=== PATIENT | male | born 1940 | race Caucasian/White ===

== ENCOUNTER 2016-09-13 15:55 | Emergency (ER) | payer OTHER ==
[~2016-09-13] VITALS: Ht 180.3 cm; Wt 51.6 kg
[~2016-09-13 15:55] MED LIST: ALFU10TA2 PO; ASPI325T PO; ATOR40TA PO; CARV6.25 PO; CLOP75TA PO; ENAL5TAB PO; FERR324T4 PO; GABA300C3 PO; LORTA5 PO; NITR0.4S SL; PANT20 PO; PRED5TAB PO; RANO500 PO; ROFL1TAB2 OR; SERT-132 OR; SYMB160A INH; TRAZ100 PO
[2016-09-13 15:59] VITALS: BP 105/55; PULSE 83; RESP 16; TEMP 98.4; O2SAT 96
== END 2016-09-13 18:01 | disposition left against medical advice (07) ==
LOC: PHED 15:55
DX: S81.812A Laceration without foreign body, left lower leg, initial encounter (principal); Z53.21 Procedure and treatment not carried out due to patient leaving prior to being seen by health care provider; W19.XXXA Unspecified fall, initial encounter
CPT/HCPCS: 99281

== ENCOUNTER 2017-01-25 12:40 | Inpatient (IN) | payer OTHER, MEDICARE ==
[~2017-01-25] VITALS: Ht 154.9 cm; Wt 70.0 kg
[2017-01-25] VITALS (17 sets, daily range): BP systolic 76–125; BP diastolic 45–63; PULSE 79–125; RESP 18–30; TEMP 97.6–98; O2SAT 94–98
[2017-01-25] MEDS ORDERED: SODIUM CHLORIDE 0.9% FLUSH 10 ML FLUSH IVF PRN (13:00)
--- NOTE | 2017-01-25 13:00 | PD ---
HPI Chief Complaint: Chest Pain Time Seen by Provider: 12:52 Travel History International Travel<30 days: No Contact w/Intl Traveler<30days: No Traveled to known affect area: No History of Present Illness HPI 76 YO M with PMH of HTN, CAD s/p stenting, COPD presents to the ED for evaluation of ~45 minute history of sudden onset, 8/10, cramping left sided lower chest/ abdominal pain. Onset at rest. Radiating to the back. Patient denies palpitations, N/V, worsening SOB. Patient states that he finished a course of antibiotics yesterday for bronchitis. He denies fevers, chills, lower extremity edema. He took a dose of nitroglycerin before arrival with no improvement of the pain. He denies alcohol use. He uses O2 at night. He is followed by Dr. Yin and Dr. Olson. [facility] Past Medical History Hx Anticoagulant Therapy: Yes (PLAVIX) Asthma: Yes Blood Disorders: No Anxiety: Yes Depression: Yes Heart Rhythm Problems: No Cancer: No Cardiac Catheterization: Yes Cardiovascular Problems: Yes (3 STENTS) High Cholesterol: Yes Chest Pain: Yes Congestive Heart Failure: No COPD: Yes Cerebrovascular Accident: Yes (x3) Coronary Artery Disease: Yes Diabetes: No Diminished Hearing: Yes (DIMINISHED HEARING LOW) Endocrine: No Gastrointestinal Disorders: Yes GERD: Yes Genitourinary: No Hepatitis: No Hiatal Hernia: No Hypertension: Yes Immune Disorder: No Musculoskeletal: No Neurologic: Yes (STROKE) Psychiatric: Yes Reproductive: No Respiratory: Yes (COPD) Immunizations Current: Yes Myocardial Infarction: Yes Thyroid Disease: No Ulcer: Yes Past Surgical History Abdominal Surgery: Yes (ulcers, APPY) AICD: No Appendectomy: Yes Body Medical Devices: STENTS X3 Cardiac Surgery: Yes (cardiac cath, BALLOON PLACEMENT, STENTS ) Coronary Stent: Yes Ear Surgery: No Endocrine Surgery: No Eye Surgery: No Genitourinary Surgery: No Gynecologic Surgery: No Joint Replacement: No Oral Surgery: No Pacemaker: No Thoracic Surgery: No Tonsillectomy: Yes Other Surgery: Yes (appendix) Social History Alcohol Use: No Tobacco Use: No (quit 2008) Substance Use: No Allergies-Medications (Allergen,Severity, Reaction): Coded Allergies: No Known Allergies (Verified , 09/13/16) Reported Meds & Prescriptions Reported Meds & Active Scripts Active Review of Systems Except as stated in HPI: all other systems reviewed are Neg Physical Exam Narrative GENERAL: Well-nourished, well-developed, pale male. Pursed lip breathing. Tachypneic. SKIN: Focused skin assessment warm/dry. HEAD: Normocephalic. EYES: No scleral icterus. No injection or drainage. NECK: Supple, trachea midline. No JVD or lymphadenopathy. CARDIOVASCULAR: Regular rate and rhythm without murmurs, gallops, or rubs. 2+ DP pulses bilaterally. RESPIRATORY: Breath sounds clear. Diminished on the lower left. + accessory muscle use. GASTROINTESTINAL: Abdomen soft, non-tender, nondistended. Active bowel sounds. MUSCULOSKELETAL: No cyanosis, or edema. Patient is noted to walk with a normal gait. BACK: Nontender without obvious deformity. No CVA tenderness. Data Data Last Documented VS Vital Signs Date Time Temp Pulse Resp B/P (MAP) Pulse Ox O2 Delivery O2 Flow Rate FiO2 01/25/17 14:49 80 89/52 (64) 01/25/17 13:22 96 Nasal Cannula 2.00 01/25/17 13:17 27 01/25/17 12:45 97.6 Orders Orders Electrocardiogram (01/25/17 12:49) Basic Metabolic Panel (Bmp) (01/25/17 12:49) Ckmb (Isoenzyme) Profile (01/25/17 12:49) Complete Blood Count With Diff (01/25/17 12:49) Magnesium (Mg) (01/25/17 12:49) Prothrombin Time / Inr (Pt) (01/25/17 12:49) Act Partial Throm Time (Ptt) (01/25/17 12:49) Troponin I (01/25/17 12:49) Chest, Single Ap (01/25/17 12:49) Ecg Monitoring (01/25/17 12:49) Bilateral Bp Monitoring (01/25/17 12:49) Iv Access Insert/Monitor (01/25/17 12:49) Oximetry (01/25/17 12:49) Oxygen Administration (01/25/17 12:49) Sodium Chloride 0.9% Flush (Ns Flush) (01/25/17 13:00) Lipase (01/25/17 13:02) Morphine Inj (Morphine Inj) (01/25/17 13:15) Sodium Chlor 0.9% 1000 Ml Inj (Ns 1000 M (01/25/17 13:30) Cta Thor Abd Aorta W Iv C W3d (01/25/17 13:22) Sodium Chlor 0.9% 1000 Ml Inj (Ns 1000 M (01/25/17 13:45) CKMB (01/25/17 13:00) CKMB% (01/25/17 13:00) Acetaminophen (Tylenol) (01/25/17 13:45) Ct Brain W/O Iv Contrast(Rout) (01/25/17 ) Type And Screen (01/25/17 13:38) Heparin Inj (Heparin Inj) (01/25/17 14:00) Heparin Inj (Heparin Inj) (01/25/17 20:00) Heparin Inj (Heparin Inj) (01/25/17 20:00) Heparin-D5w 25,000 U/250 Ml (Heparin-D5w (01/25/17 14:00) Act Partial Throm Time (Ptt) (01/25/17 13:51) Cbc No Diff, Includes Plts (01/25/17 13:51) Cbc No Diff, Includes Plts (01/28/17 06:00) Act Partial Throm Time (Ptt) (01/25/17 20:51) Occult Blood (Hemoccult) Stool (01/25/17 13:51) Iohexol 350 Inj (Omnipaque 350 Inj) (01/25/17 13:51) Consult Cardiology (01/25/17 ) Electrocardiogram (01/25/17 13:39) Admit Order (Ed Use Only) (01/25/17 15:14) Labs Laboratory Tests Test 01/25/17 13:00 01/25/17 13:55 White Blood Count 11.9 TH/MM3 11.9 TH/MM3 Red Blood Count 4.57 MIL/MM3 4.59 MIL/MM3 Hemoglobin 14.0 GM/DL 14.0 GM/DL Hematocrit 42.3 % 42.7 % Mean Corpuscular Volume 92.5 FL 92.9 FL Mean Corpuscular Hemoglobin 30.6 PG 30.4 PG Mean Corpuscular Hemoglobin Concent 33.1 % 32.7 % Red Cell Distribution Width 14.4 % 14.6 % Platelet Count 156 TH/MM3 161 TH/MM3 Mean Platelet Volume 7.3 FL 7.9 FL Neutrophils (%) (Auto) 87.8 % Lymphocytes (%) (Auto) 6.0 % Monocytes (%) (Auto) 5.7 % Eosinophils (%) (Auto) 0.2 % Basophils (%) (Auto) 0.3 % Neutrophils # (Auto) 10.4 TH/MM3 Lymphocytes # (Auto) 0.7 TH/MM3 Monocytes # (Auto) 0.7 TH/MM3 Eosinophils # (Auto) 0.0 TH/MM3 Basophils # (Auto) 0.0 TH/MM3 CBC Comment DIFF FINAL Differential Comment Prothrombin Time 10.1 SEC Prothromb Time International Ratio 0.9 RATIO Activated Partial Thromboplast Time 23.3 SEC 23.5 SEC Blood Urea Nitrogen 19 MG/DL Creatinine 1.43 MG/DL Random Glucose 112 MG/DL Calcium Level 10.3 MG/DL Magnesium Level 2.1 MG/DL Sodium Level 139 MEQ/L Potassium Level 5.1 MEQ/L Chloride Level 104 MEQ/L Carbon Dioxide Level 28.1 MEQ/L Anion Gap 7 MEQ/L Estimat Glomerular Filtration Rate 48 ML/MIN Total Creatine Kinase 108 U/L Creatine Kinase MB 4.5 NG/ML Troponin I 0.03 NG/ML Lipase 452 U/L MDM Medical Decision Making Medical Screen Exam Complete: Yes Emergency Medical Condition: Yes Differential Diagnosis COPD exacerbation versus PNA versus ACS versus ruptured AAA versus pancreatitis versus other Narrative Course 76 YO M with PMH of HTN, CAD s/p stenting, COPD presents to the ED for evaluation of ~45 minute history of sudden onset, 8/10, cramping left sided lower chest/ abdominal pain. Onset at rest. Radiating to the back. Patient denies palpitations, N/V, worsening SOB. Patient states that he finished a course of antibiotics yesterday for bronchitis. He denies fevers, chills, lower extremity edema. He took a dose of nitroglycerin before arrival with no improvement of the pain. He denies alcohol use. He uses O2 at night. Vitals reviewed, tachycardic with BP within normal limits on arrival. Hypotensive 89/ 54 in the exam room shortly after arrival. On exam the patient has pale appearing. Chest CTAB. Diminished lung signs of a left lower lobe. Abdomen soft, nontender. No focal neuro deficits. IV was established. Patient was administered 4 mg of morphine and 2 L of normal saline. EKG #[address] depressions. Resolved on second EKG approximately one half hour later. Cardiac enzymes: CK-MB 4.5. Troponin 0.03. Chest x-ray: No acute cardiopulmonary process per radiology read. CBC: WBC 11.9 with left shift. Coags: INR 0.9. CMP: BUN 19, creatinine 1.43. Calcium 10.3. Lipase 452 CT head: No acute intracranial abnormality. CTA thoracicoabdominal aortic: Atherosclerosis without dissection or aneurysm per radiology read. Dr. Walls spoke with Dr. Yin who recommended heparin initiation. Bolus and drip ordered. Cardiology consult placed. I spoke with Dr. Villasenorink agrees to accept the patient to the medicine service in the [facility]. Please see medicine notes for disposition [facility] Point of Care Internal Pos. & Neg. Controls: Passed Fecal Specimen Occult Blood: Negative Zoey Concepcion Jan 25, 2017 13:00
[2017-01-25] MEDS ORDERED: MORPHINE SULFATE 4 MG/ML INJ IV PUSH ONE (13:15)
[2017-01-25 13:18] LABS: AUTOMATED NEUTROPHIL # 10.4 TH/MM3 (1.8-7.7); BASOPHIL % 0.3 % (0.0-2.0); EOSINOPHIL % 0.2 % (0.0-4.0); HEMATOCRIT 42.3 % (39.0-51.0); HEMO FLAGS DIFF FINAL; LYMPHOCYTE # 0.7 TH/MM3 (1.0-4.8); MEAN CELL VOLUME 92.5 FL (80.0-100.0); MEAN CORPUSCULAR HEMOGLOBIN 30.6 PG (27.0-34.0); MEAN CORPUSCULAR HGB CONC 33.1 % (32.0-36.0); MONO % 5.7 % (0.0-8.0); NEUT % 87.8 % (16.0-70.0); PLATELET COUNT 156 TH/MM3 (150-450); RED BLOOD COUNT 4.57 MIL/MM3 (4.50-5.90); RED CELL DISTRIBUTION WIDTH 14.4 % (11.6-17.2); WHITE BLOOD COUNT 11.9 TH/MM3 (4.0-11.0)
[2017-01-25 13:25] LABS: APTT (PATIENT) 23.3 SEC (24.3-30.1); INTERNATIONAL NORMALIZED RATIO 0.9 RATIO; PROTHROMBIN TIME - PATIENT 10.1 SEC (9.8-11.6)
[2017-01-25] MEDS ORDERED: SODIUM CHLOR 0.9% 1000 ML INJ 1,000 ML IV ONE ×2 (13:30→13:45)
[2017-01-25 13:34] LABS: ANION GAP 7 MEQ/L (5-15); BICARBONATE 28.1 MEQ/L (21.0-32.0); BLOOD UREA NITROGEN 19 MG/DL (7-18); CHLORIDE 104 MEQ/L (98-107); GLOMERULAR FILTRATION RATE 48 ML/MIN (>89); MAGNESIUM 2.1 MG/DL (1.5-2.5); POTASSIUM 5.1 MEQ/L (3.5-5.1); SODIUM (NA) 139 MEQ/L (136-145)
[2017-01-25 13:38] LABS: CREATINE KINASE 108 U/L (39-308)
[2017-01-25] MEDS ORDERED: ACETAMINOPHEN 500 MG CPLT PO ONE (13:45)
[2017-01-25 13:50] LABS: CKMB 4.5 NG/ML (0.5-3.6)
[2017-01-25] MEDS ORDERED: IOHEXOL 350 MG/ML 10 ML VIAL (for RAD DIAG) IV PUSH ONE (13:51)
--- NOTE | 2017-01-25 13:52 | RADRPT ---
EXAM DATE/TIME: 01/25/2017 13:22 [facility] COMPARISON: CHEST SINGLE AP, March 01, 2014, 15:47. INDICATIONS : Bilateral chest pain for 1 day. MEDICAL HISTORY : Chronic obstructive pulmonary disease. SURGICAL HISTORY : Stent. ENCOUNTER: Initial ACUITY: 1 day PAIN SCORE: 5/10 LOCATION: Bilateral chest FINDINGS: Portable AP view of the chest demonstrates a normal-sized cardiac silhouette. No effusion, consolidat ion, or pneumothorax is visualized. The bones and soft tissues demonstrate no acute abnormality. Ther e is calcification of the aorta. Stable calcified granulomas are present in the left lung. CONCLUSION: Stable chest x-ray. No acute cardiopulmonary abnormality is identified. Hira Osorio MD on January 25, 2017 at 13:50 Board Certified Radiologist. This report was verified electronically.
[2017-01-25] MEDS ORDERED: HEPARIN-D5W 25,000 U/250 ML 250 ML IV PRN (14:00)
[2017-01-25] MEDS ORDERED: HEPARIN SODIUM - IV 10,000 UNITS/10 ML VIAL IV ONE (14:00)
--- NOTE | 2017-01-25 14:04 | RADRPT ---
EXAM DATE/TIME: 01/25/2017 13:52 [facility] COMPARISON: CT BRAIN W/O CONTRAST, May 26, 2015, 1:27. INDICATIONS : Headaches for one day. RADIATION DOSE: 43.42 CTDIvol (mGy) MEDICAL HISTORY : Cardiovascular disease. Hypertension. CVA SURGICAL HISTORY : Appendectomy. ENCOUNTER: Initial ACUITY: 1 day PAIN SCALE: 4/10 LOCATION: Bilateral cranial TECHNIQUE: Multiple contiguous axial images were obtained of the head. Using automated exposure control and adj ustment of the mA and/or kV according to patient size, radiation dose was kept as low as reasonably a chievable to obtain optimal diagnostic quality images. DICOM format image data is available electro nically for review and comparison. FINDINGS: CEREBRUM: There is mild cerebral atrophy. Ventricles are normal in size. There is mild periventricular white ma tter low attenuation. No evidence of midline shift, mass lesion, hemorrhage or acute infarction. No extra-axial fluid collections are seen. POSTERIOR FOSSA: The cerebellum and brainstem demonstrate no acute finding. The 4th ventricle is midline. The cerebe llopontine angle is unremarkable. EXTRACRANIAL: The visualized portion of the orbits is intact. SKULL: The calvaria is intact. No evidence of skull fracture. CONCLUSION: Stable noncontrast head CT. No acute intracranial abnormality is identified. Hira Osorio MD on January 25, 2017 at 13:59 Board Certified Radiologist. This report was verified electronically.
[2017-01-25 14:18] LABS: HEMATOCRIT 42.7 % (39.0-51.0); MEAN CELL VOLUME 92.9 FL (80.0-100.0); MEAN CORPUSCULAR HEMOGLOBIN 30.4 PG (27.0-34.0); MEAN CORPUSCULAR HGB CONC 32.7 % (32.0-36.0); PLATELET COUNT 161 TH/MM3 (150-450); RED BLOOD COUNT 4.59 MIL/MM3 (4.50-5.90); RED CELL DISTRIBUTION WIDTH 14.6 % (11.6-17.2); REVIEW FLAG FINAL; WHITE BLOOD COUNT 11.9 TH/MM3 (4.0-11.0)
--- NOTE | 2017-01-25 14:28 | PD ---
Physical Exam Date Seen by Provider: Jan 25, 2017 Time Seen by Provider: 14:24 Narrative 76-year-old male came to the emergency room with history of sharp chest pain that ran all the way across his chest starting from the left side while he was in the car waiting for his to come out of a store. This was 45 minutes prior to the arrival. Patient was seen by my PA and I'm supervising her. I was called in the room urgently because his blood pressure was running in the 70s. Apparently patient initially came in with normal vital signs and that her blood pressure started to drop. He is currently on fluid with pressure back. I looked at the first EKG which showed ST depressions in the septal leads especially with sinus tachycardia. I ordered a repeat EKG which shows normalizing of the septal depressions. Blood test results were back which showed: Within normal range. Currently awaiting for CT scan of his thoracic aorta to rule out dissection and a head CT since patient was complaining of headache. He will need to be admitted and in my opinion should be in [facility] at least. He will be started on heparin bolus and drip because of the dynamic EKG changes. I discussed with his literacy consultant Dr. Ruiz who recognizes the patient very well. As per him patient is a heavy smoker and a very bad history of COPD. Data Data Last Documented VS Orders Orders Electrocardiogram (01/25/17 12:49) Basic Metabolic Panel (Bmp) (01/25/17 12:49) Ckmb (Isoenzyme) Profile (01/25/17 12:49) Complete Blood Count With Diff (01/25/17 12:49) Magnesium (Mg) (01/25/17 12:49) Prothrombin Time / Inr (Pt) (01/25/17 12:49) Act Partial Throm Time (Ptt) (01/25/17 12:49) Troponin I (01/25/17 12:49) Chest, Single Ap (01/25/17 12:49) Ecg Monitoring (01/25/17 12:49) Bilateral Bp Monitoring (01/25/17 12:49) Iv Access Insert/Monitor (01/25/17 12:49) Oximetry (01/25/17 12:49) Oxygen Administration (01/25/17 12:49) Sodium Chloride 0.9% Flush (Ns Flush) (01/25/17 13:00) Lipase (01/25/17 13:02) Morphine Inj (Morphine Inj) (01/25/17 13:15) Sodium Chlor 0.9% 1000 Ml Inj (Ns 1000 M (01/25/17 13:30) Cta Thor Abd Aorta W Iv C W3d (01/25/17 13:22) Sodium Chlor 0.9% 1000 Ml Inj (Ns 1000 M (01/25/17 13:45) CKMB (01/25/17 13:00) CKMB% (01/25/17 13:00) Acetaminophen (Tylenol) (01/25/17 13:45) Ct Brain W/O Iv Contrast(Rout) (01/25/17 ) Type And Screen (01/25/17 13:38) Heparin Inj (Heparin Inj) (01/25/17 14:00) Heparin Inj (Heparin Inj) (01/25/17 20:00) Heparin Inj (Heparin Inj) (01/25/17 20:00) Heparin-D5w 25,000 U/250 Ml (Heparin-D5w (01/25/17 14:00) Act Partial Throm Time (Ptt) (01/25/17 13:51) Cbc No Diff, Includes Plts (01/25/17 13:51) Iohexol 350 Inj (Omnipaque 350 Inj) (01/25/17 13:51) Consult Cardiology (01/25/17 ) Electrocardiogram (01/25/17 13:39) Admit Order (Ed Use Only) (01/25/17 15:14) Labs Laboratory Tests Test 01/25/17 13:00 01/25/17 13:55 White Blood Count 11.9 TH/MM3 11.9 TH/MM3 Red Blood Count 4.57 MIL/MM3 4.59 MIL/MM3 Hemoglobin 14.0 GM/DL 14.0 GM/DL Hematocrit 42.3 % 42.7 % Mean Corpuscular Volume 92.5 FL 92.9 FL Mean Corpuscular Hemoglobin 30.6 PG 30.4 PG Mean Corpuscular Hemoglobin Concent 33.1 % 32.7 % Red Cell Distribution Width 14.4 % 14.6 % Platelet Count 156 TH/MM3 161 TH/MM3 Mean Platelet Volume 7.3 FL 7.9 FL Neutrophils (%) (Auto) 87.8 % Lymphocytes (%) (Auto) 6.0 % Monocytes (%) (Auto) 5.7 % Eosinophils (%) (Auto) 0.2 % Basophils (%) (Auto) 0.3 % Neutrophils # (Auto) 10.4 TH/MM3 Lymphocytes # (Auto) 0.7 TH/MM3 Monocytes # (Auto) 0.7 TH/MM3 Eosinophils # (Auto) 0.0 TH/MM3 Basophils # (Auto) 0.0 TH/MM3 CBC Comment DIFF FINAL Differential Comment Prothrombin Time 10.1 SEC Prothromb Time International Ratio 0.9 RATIO Activated Partial Thromboplast Time 23.3 SEC 23.5 SEC Blood Urea Nitrogen 19 MG/DL Creatinine 1.43 MG/DL Random Glucose 112 MG/DL Calcium Level 10.3 MG/DL Magnesium Level 2.1 MG/DL Sodium Level 139 MEQ/L Potassium Level 5.1 MEQ/L Chloride Level 104 MEQ/L Carbon Dioxide Level 28.1 MEQ/L Anion Gap 7 MEQ/L Estimat Glomerular Filtration Rate 48 ML/MIN Total Creatine Kinase 108 U/L Creatine Kinase MB 4.5 NG/ML Troponin I 0.03 NG/ML Lipase 452 U/L MDM Supervised Visit with JOSE: Yes Critical Care Narrative Aggregate critical care time was 30 minutes. Time to perform other separately billable procedures was not included in the critical care time. My time did not include minutes spent treating any other patients simultaneously or on activities that did not directly contribute to the patient's treatment. The services I provided to this patient were to treat and/or prevent clinically significant deterioration that could result in: Hypotension, ACS, heparin bolus and drip I provided critical care services requiring my management, as noted below: Chart data review, documentation time, medication orders and management, vital sign assessments/reviewing monitor data, ordering and reviewing lab tests, ordering and interpreting/reviewing x-rays and diagnostic studies, care of the patient and discussion of the patient with the admitting physicians. Scripts Aspirin DR (Aspirin EC) 81 Mg Tabdr 81 MG PO DAILY for heart, #30 TAB 0 Refills Prov: Juan Rogers MD 01/27/17 Ranolazine ER 12 HR (Ranexa ER 12 HR) 500 Mg Tab 1000 MG PO BID for Chest Pain, #60 TAB 0 Refills Prov: Juan Rogers MD 01/27/17 Sharath Walls MD Jan 25, 2017 14:28
[2017-01-25 14:31] LABS: APTT (PATIENT) 23.5 SEC (24.3-30.1)
--- NOTE | 2017-01-25 14:45 | MB ---
cc: JAMIE ARAGON MD DATE OF CONSULTATION: 01/25/2017. REASON FOR CONSULTATION: Chest pain. HISTORY OF PRESENT ILLNESS: The patient is a very pleasant 76-year-old gentleman well-known to myself who has a history of complex coronary disease status post multiple cardiac stents as well as severe COPD, though he is no longer smoking (he does get significant secondhand smoke from his ). The patient was in his usual state of reasonable though imperfect health when he began having what he describes as a severe sharp central chest pain. Because of these pains, he took a nitroglycerin and presented to the hospital where his initial workup was notable for a first normal troponin as well as an EKG showing minimal S-T depressions. Currently the patient is not having any further chest pain, though he does have chronic shortness of breath. He denies lightheadedness, dizziness or syncope. PAST MEDICAL HISTORY: 1. Complex coronary disease status post multiple stents. 2. Severe COPD. 3. Pulmonary hypertension. HOME MEDICATIONS: 1. Plavix 75 milligrams daily. 2. Ranexa 500 milligrams twice a day. 3. Atorvastatin 40 milligrams daily. 4. Sublingual nitroglycerin. 5. Coreg 6.25 milligrams twice a day. 6. Enalapril 5 milligrams daily. 7. Aspirin 325 milligrams daily. 8. Neurontin 300 milligrams p.o. three times a day. 9. Sertraline 50 milligrams daily. 10. Trazodone 100 milligrams at bedtime. 11. Prednisone 10 milligrams daily. ALLERGIES: NO KNOWN DRUG ALLERGIES. PHYSICAL EXAMINATION: VITAL SIGNS: Afebrile, pulse 90 down from 125, respiratory rate 20 down from 28, blood pressure 125/58, satting 96% on two liters. GENERAL: A pleasant gentleman with perhaps some mild respiratory distress. NECK: No jugular venous distention. LUNGS: Very decreased breath sounds in all orosco. CARDIOVASCULAR: Distant heart sounds. No significant murmurs appreciated. ABDOMEN: Benign. EXTREMITIES: No edema. LABORATORY DATA: Sodium 139, potassium 5.1, chloride 104, bicarbonate 28.1, BUN 19, creatinine 1.43, glucose 112. Lipase is 452. White count 11.9, hematocrit 42.3, platelet count 156,000. EKGs: EKG shows sinus tachycardia with old inferior infarct with subtle diffuse S-T depressions which perhaps improve slightly when his heart rate is slower on the subsequent EKG, though I would not consider this a dramatic dynamic change. IMPRESSION: 1. Chest pain: The patient's chest pain is fairly atypical and I have more concern for a pulmonary etiology given its sharp nature. His CTA of the chest is pending. I will rule him out for a myocardial infarction and if he rules out, plan for a nuclear stress test. I think a heparin drip is reasonable until he rules out given the S-T depressions seen on the EKG. Further recommendations will be based on his clinical course. Thank you again for the opportunity to participate in this patient's care. MD SANJAY Connolly/GILDARDO /2:15 PM /2:29 PM
--- NOTE | 2017-01-25 15:05 | RADRPT ---
EXAM DATE/TIME: 01/25/2017 13:58 [facility] COMPARISON: CHEST SINGLE AP, January 25, 2017, 13:22. INDICATIONS : Chest pains for one day. IV CONTRAST: 97 cc Omnipaque 350 (iohexol) IV RADIATION DOSE: 16.54 CTDIvol (mGy) MEDICAL HISTORY : Hypertension. Cardiovascular disease CVA SURGICAL HISTORY : Appendectomy. ENCOUNTER: Initial ACUITY: 1 day PAIN SCALE: 4/10 LOCATION: Right chest TECHNIQUE: Volumetric scanning was performed using a multi-row detector CT scanner. The data was post processed with a variety of visualization algorithms including full volume maximum intensity projection, multi -planar sliding thin slab reformation, curved planar reformation, and surface rendering techniques. Using automated exposure control and adjustment of the mA and/or kV according to patient size, radiat ion dose was kept as low as reasonably achievable to obtain optimal diagnostic quality images. DICOM format image data is available electronically for review and comparison. FINDINGS: LUNGS: There is no consolidation or pneumothorax. The lungs are hyperinflated with underlying emphysema and scarring. No concerning pulmonary nodule is visualized. No pleural fluid is present. MEDIASTINUM: No abnormally enlarged lymph nodes by CT criteria. No axillary or hilar abnormalities are identified. Atherosclerotic changes are present in the aorta and there are coronary artery calcifications. ABDOMEN: The liver and spleen are free of focal defects. The gallbladder and pancreas demonstrate no abnormali ty. The adrenal glands are normal. The kidneys demonstrate no evidence of solid renal mass or hydrone phrosis. No free fluid or abdominal masses are identified. No para-aortic adenopathy is seen. The pat ient status post cholecystectomy. A nonobstructing left renal calculus. PELVIS: No evidence of free fluid or pelvic mass. No abnormally enlarged inguinal or retroperitoneal lymph no neda are present. The bladder is unremarkable. THORACIC AORTA: Diffuse atherosclerotic changes are noted with calcification, mild dilatation and plaque.. There is no evidence of aneurysm or dissection. ABDOMINAL AORTA: The aorta is normal in caliber without aneurysm or dissection. The renal arteries are patent bilater ally. The proximal celiac and superior mesenteric arteries are patent and normal in diameter. PELVIC VESSELS: Diffuse atherosclerotic changes noted with calcification and plaque. There is no focal aneurysm. CONCLUSION: 1. Atherosclerotic changes in the aorta with no evidence of dissection or aneurysm. 2. Hyperinflation and underlying emphysema. Cisco Beyer MD on January 25, 2017 at 15:00 Board Certified Radiologist. This report was verified electronically.
[2017-01-25] MEDS ORDERED: ACETAMINOPHEN 500 MG CPLT PO PRN (15:45)
[2017-01-25] MEDS ORDERED: MORPHINE SULFATE 4 MG/ML INJ IV PUSH PRN (15:45)
[2017-01-25] MEDS ORDERED: NITROGLYCERIN 0.4 MG SL 25 TABS/BTL SL PRN (15:45)
[2017-01-25] MEDS ORDERED: RESP: ALBUTEROL 2.5 MG/3 ML NEB (PRN) NEB (15:45)
--- NOTE | 2017-01-25 16:00 | HHI.HP ---
[facility] Service [facility] Primary Care Physician Marina Olson Do, MD Admission Diagnosis ST depression, CP Diagnoses: (1) Atypical chest pain Diagnosis: Principal (2) COPD (chronic obstructive pulmonary disease) Diagnosis: Secondary Chief Complaint: Chest pain Travel History International Travel<30 Days: No Contact w/Intl Traveler <30 Da: No Traveled to Known Affected Are: No Sepsis Criteria SIRS Criteria (2 or more): Heart rate over 90, RR > 20 or PaCO2 < 32 History of Present Illness Written by Eliza Kruger, acting as scribe for Dr. Rogers on 01/25/17 at 15: 50. Mr. Melo is a 76-year-old male patient with a known medical history of COPD requiring home O2 and history of CAD with stent placement who presented to the ED with complaints of chest pain. Patient states he developed sudden chest discomfort in his left sternal chest with radiation to his neck, 8/10 on pain scale, with no noticeable relieving or aggravating factors. Patient states he tried taking a subinguinal Nitro with little relief therefore his brought him to the ED. Currently patient's pain is well-controlled after Morphine IV administration and currently on a Heparin drip. Denies any associated headache, vision changes, diplopia, nausea, vomiting, diaphoresis, dysuria or diarrhea. Does admit to associated dyspnea, although patient does have a history of COPD and requires 4 L NC of O2 at home. States he uses his relief inhaler and nebulizers as needed. Printing Agent is Dr. Choi. Patient's clinical application consultant is Dr. Yin. Review of Systems Constitutional: DENIES: Fatigue, Fever, Chills Endocrine: DENIES: Heat/cold intolerance Eyes: DENIES: Vision loss, Double Vision Respiratory: COMPLAINS OF: Wheezing, Shortness of breath, DENIES: Cough Cardiovascular: COMPLAINS OF: Chest pain, DENIES: Palpitations Gastrointestinal: DENIES: Abdominal pain, Constipation, Diarrhea, Nausea, Vomiting Except as stated in HPI: all other systems reviewed are Neg Past Family Social History Past Medical History COPD requiring 4 LNC home O2. CAD with stent placement 5 years ago. Tobacco abuse history. Past Surgical History Left knee replacement Bilateral cataracts Appendectomy Tonsillectomy Reported Medications Allergies: Coded Allergies: No Known Allergies (Verified , 09/13/16) Active Ordered Medications Current Medications Medications (Trade) Dose Ordered Sig/Carlton Route Start Time Stop Time Status Last Admin (NS Flush) 2 ml UNSCH PRN IVF 01/25/17 13:00 (Heparin Inj) 5,000 units UNSCH PRN IV 01/25/17 20:00 (Heparin Inj) 2,500 units UNSCH PRN IV 01/25/17 20:00 Heparin Sodium/ Dextrose 250 ml @ 8.4 mls/hr TITRATE PRN IV 01/25/17 14:00 01/25/17 14:50 Family History Maternal medical history significant for cancer, unknown type. Father has a history of diabetes. Social History Denies any current tobacco use, states he quit smoking 8 years ago. Denies any alcohol use. Denies any illicit drug use. Physical Exam Vital Signs Vital Signs Date Time Temp Pulse Resp B/P (MAP) Pulse Ox O2 Delivery O2 Flow Rate FiO2 01/25/17 14:49 80 89/52 (64) 01/25/17 14:22 88 88/52 (64) 01/25/17 13:39 96 78/45 (56) 01/25/17 13:31 96 76/51 (59) 01/25/17 13:22 96 Nasal Cannula 2.00 01/25/17 13:20 106 89/54 (66) 01/25/17 13:17 106 27 88/52 (64) 98 Nasal Cannula 01/25/17 13:14 108 28 76/49 (58) 97 Nasal Cannula 01/25/17 12:49 26 98 Nasal Cannula 2.00 01/25/17 12:48 112 30 125/58 (80) 98 Nasal Cannula 2.00 01/25/17 12:45 97.6 124 28 89/55 (66) 96 Room Air 01/25/17 12:45 98.0 125 26 125/58 (80) 98 Physical Exam GENERAL: This is a well-nourished, well-developed male patient, lying in bed on 4LNC with apparent dyspnea. SKIN: No rashes, ecchymoses or lesions. Cool and dry. HEAD: Atraumatic. Normocephalic. Pupils equal round and reactive. Extraocular motions intact. No scleral icterus. No injection or drainage. Nose without bleeding. Throat without erythema, tonsillar hypertrophy or exudate. Uvula midline. Airway patent. NECK: Trachea midline. No JVD. Supple. CARDIOVASCULAR: Sinus tachycardic rhythm, without murmurs, gallops, or rubs. RESPIRATORY: Inspiratory and expiratory wheezing noted throughout lung orosco. Breath sounds equal bilaterally. GASTROINTESTINAL: Abdomen soft, non-tender, round. No guarding. MUSCULOSKELETAL: Extremities without clubbing, cyanosis, or edema. No joint tenderness, effusion, or edema noted. NEUROLOGICAL: Awake and alert. Cranial nerves II through XII intact. Motor and sensory grossly within normal limits. Five out of 5 muscle strength in all muscle groups. Normal speech. Laboratory Laboratory Tests Test 01/25/17 13:00 01/25/17 13:55 White Blood Count 11.9 11.9 Red Blood Count 4.57 4.59 Hemoglobin 14.0 14.0 Hematocrit 42.3 42.7 Mean Corpuscular Volume 92.5 92.9 Mean Corpuscular Hemoglobin 30.6 30.4 Mean Corpuscular Hemoglobin Concent 33.1 32.7 Red Cell Distribution Width 14.4 14.6 Platelet Count 156 161 Mean Platelet Volume 7.3 7.9 Neutrophils (%) (Auto) 87.8 Lymphocytes (%) (Auto) 6.0 Monocytes (%) (Auto) 5.7 Eosinophils (%) (Auto) 0.2 Basophils (%) (Auto) 0.3 Neutrophils # (Auto) 10.4 Lymphocytes # (Auto) 0.7 Monocytes # (Auto) 0.7 Eosinophils # (Auto) 0.0 Basophils # (Auto) 0.0 CBC Comment DIFF FINAL Differential Comment Prothrombin Time 10.1 Prothromb Time International Ratio 0.9 Activated Partial Thromboplast Time 23.3 23.5 Blood Urea Nitrogen 19 Creatinine 1.43 Random Glucose 112 Calcium Level 10.3 Magnesium Level 2.1 Sodium Level 139 Potassium Level 5.1 Chloride Level 104 Carbon Dioxide Level 28.1 Anion Gap 7 Estimat Glomerular Filtration Rate 48 Total Creatine Kinase 108 Creatine Kinase MB 4.5 Troponin I 0.03 Lipase 452 Result Diagram: 01/25/17 1355 01/25/17 1300 Imaging Last Impressions Aorta CTA 01/25/17 1322 Signed Impressions: Service Date/Time: Wednesday, January 25, 2017 13:58 - CONCLUSION: 1. Atherosclerotic changes in the aorta with no evidence of dissection or aneurysm. 2. Hyperinflation and underlying emphysema. Cisco Beyer MD Chest X-Ray 01/25/17 1249 Signed Impressions: Service Date/Time: Wednesday, January 25, 2017 13:22 - CONCLUSION: Stable chest x-ray. No acute cardiopulmonary abnormality is identified. Hira Osorio MD Head CT 01/25/17 0000 Signed Impressions: Service Date/Time: Wednesday, January 25, 2017 13:52 - CONCLUSION: Stable noncontrast head CT. No acute intracranial abnormality is identified. MD Samantha Fountain VTE Risk Assessment Caprini VTE Risk Assessment: Mod/High Risk (score >= 2) Caprini Risk Assessment Model Point Value = 1 Point Value = 2 Point Value = 3 Point Value = 5 Age 41-60 Minor surgery BMI > 25 kg/m2 Swollen legs Varicose veins or History of unexplained or recurrent spontaneous Oral contraceptives or hormone replacement Sepsis (< 1 month) Serious lung disease, including pneumonia (< 1 month) Abnormal pulmonary function Acute myocardial infarction Congestive heart failure (< 1 month) History of inflammatory bowel disease Medical patient at bed rest Age 61-74 Arthroscopic surgery Major open surgery (> 45 min) Laparoscopic surgery (> 45 min) Malignancy Confined to bed (> 72 hours) Immobilizing plaster cast Central venous access Age >= 75 History of VTE Family history of VTE Factor V Leiden Prothrombin [id number] Lupus anticoagulant Anticardiolipin antibodies Elevated serum homocysteine Heparin-induced thrombocytopenia Other congenital or acquired thrombophilia Stroke (< 1 month) Elective arthroplasty Hip, pelvis, or leg fracture Acute spinal cord injury (< 1 month) Prophylaxis Regimen Total Risk Factor Score Risk Level Prophylaxis Regimen 0-1 Low Early ambulation 2 Moderate Order ONE of the following: *Sequential Compression Device (SCD) *Heparin 5000 units SQ BID 3-4 Higher Order ONE of the following medications: *Heparin 5000 units SQ TID *Enoxaparin/Lovenox 40 mg SQ daily (WT < 150 kg, CrCl > 30 mL/min) *Enoxaparin/Lovenox 30 mg SQ daily (WT < 150 kg, CrCl > 10-29 mL/min) *Enoxaparin/Lovenox 30 mg SQ BID (WT < 150 kg, CrCl > 30 mL/min) AND/OR *Sequential Compression Device (SCD) 5 or more Highest Order ONE of the following medications: *Heparin 5000 units SQ TID (Preferred with Epidurals) *Enoxaparin/Lovenox 40 mg SQ daily (WT < 150 kg, CrCl > 30 mL/min) *Enoxaparin/Lovenox 30 mg SQ daily (WT < 150 kg, CrCl > 10-29 mL/min) *Enoxaparin/Lovenox 30 mg SQ BID (WT < 150 kg, CrCl > 30 mL/min) AND *Sequential Compression Device (SCD) Assessment and Plan Assessment and Plan Mr. Melo is a 76-year-old male patient with a known medical history of COPD requiring home O2 and history of CAD with stent placement who presented to the ED with complaints of chest pain. Patient states he developed sudden chest discomfort in his left sternal chest with radiation to his neck, with no noticeable relieving or aggravating factors. Patient states he tried taking a subinguinal Nitro with little relief therefore his brought him to the ED. Atypical chest pain CAD with history of stent placement - Initial troponin flat. EKG with minimal ST depression. No arrhythmias noted. Continue to monitor trends. Continue cardiac telemetry, monitor. Lipid profile pending. - CXR reviewed showing no acute abnormality. Aorta CTA reviewed showing arthrosclerotic changes in the aorta with no evidence of dissection or aneurysm. Hyperinflation or underlying emphysema. - Cardiology consulted, patient known to Dr. Yin who has seen patient , appreciate recommendations to rule out CA with serial troponins and EKGs, if patient has no evidence of CA will perform stress test tomorrow. Follow. - Continue heparin drip per cardiology recommendations. - Sheridan PO PRN per pain scale. Morphine IV PRN per pain scale. - Place on aspirin 325 mg PO daily. - Nitroglycerin SL PRN chest pain. Chronic obstructive pulmonary disease, O2 dependent - Continue supplemental O2 to keep sats >88%. - Duonebs scheduled and PRN as needed. - Aorta CTA ruled out any acute process or PE. CXR showing evidence of emphysema. Follow clinically. GI Prophylaxis: Protonix. DVT Prophylaxis: Heparin. This note was transcribed by keerthi Kruger. I, Dr. Juan D Stoverink personally performed the history, physical exam, and medical decision making; and confirmed the accuracy of the information in the transcribed note. Authenticated by Dr. Juan Rogers on 01/25/17 at 16:40. Physician Certification 2 Midnight Certification Type: Admission for Inpatient Services Order for Inpatient Services The services are ordered in accordance with Medicare regulations or non- Medicare payer requirements, as applicable. In the case of services not specified as inpatient-only, they are appropriately provided as inpatient services in accordance with the 2-midnight benchmark. Estimated LOS (days): 2 2 days is the estimated time the patient will need to remain in the hospital, assuming treatment plan goals are met and no additional complications. Post-Hospital Plan: Not yet determined Eliza Kruger Jan 25, 2017 16:00 Juan Rogers MD Jan 25, 2017 16:40
[2017-01-25] MEDS ORDERED: VENTAER INH (16:20)
[2017-01-25] MEDS ORDERED: PLAV75TA29 PO (16:20)
[2017-01-25] MEDS ORDERED: NITR0.4S SL (16:20)
[2017-01-25] MEDS ORDERED: SYMB160A INH (16:20)
[2017-01-25] MEDS ORDERED: RANO500 PO (16:20)
[2017-01-25] MEDS ORDERED: ENAL5TAB PO (16:20)
[2017-01-25] MEDS ORDERED: CARV6.252 PO (16:20)
[2017-01-25] MEDS ORDERED: TRAZ100T6 PO (16:20)
[2017-01-25] MEDS ORDERED: PRED5TAB PO (16:20)
[2017-01-25] MEDS: RESP: ALBUTEROL 2.5 MG/IPRATROPIUM 0.5 MG NEB (SCH) NEB ×2 (16:45→21:20)
[2017-01-25] MEDS: SODIUM CHLOR 0.9% 1000 ML INJ 1,000 ML IV SCH (17:57)
[2017-01-25] MEDS: PANTOPRAZOLE SOD 40 MG DELAYED RELEASE TAB PO SCH (17:57)
[2017-01-25 19:41] LABS: APTT (PATIENT) 41.8 SEC (24.3-30.1)
[2017-01-25] MEDS ORDERED: HEPARIN SODIUM - IV 10,000 UNITS/10 ML VIAL IV PRN ×2 (20:00)
[2017-01-25] MEDS: traZODone HCL 100 MG TAB PO SCH (20:27)
[2017-01-25] MEDS: ACETAMINOPHEN/HYDROcodone 325 MG/7.5 MG TAB PO PRN (20:28)
[2017-01-25] MEDS: BUDESONIDE-FORMOTEROL 160/4.5 MCG INHALER INH SCH (20:31)
[2017-01-25] MEDS: RANOLAZINE 500 MG EXTENDED RELEASE TAB PO SCH (20:32)
[2017-01-26] VITALS (23 sets, daily range): BP systolic 84–139; BP diastolic 51–79; PULSE 71–96; RESP 18–20; TEMP 97.5–98.5; O2SAT 95–99
[2017-01-26 04:08] LABS: APTT (PATIENT) 46.1 SEC (24.3-30.1)
[2017-01-26 07:54] LABS: HDL CHOLESTEROL 63.3 MG/DL (40.0-60.0)
[2017-01-26] MEDS: RESP: ALBUTEROL 2.5 MG/IPRATROPIUM 0.5 MG NEB (SCH) NEB ×4 (08:00→20:23)
[2017-01-26] MEDS: RANOLAZINE 500 MG EXTENDED RELEASE TAB PO SCH ×2 (08:35→21:10)
[2017-01-26] MEDS: CLOPIDOGREL 75 MG TAB PO SCH (08:35)
[2017-01-26] MEDS: predniSONE 5 MG TAB PO SCH (08:35)
[2017-01-26] MEDS: PANTOPRAZOLE SOD 40 MG DELAYED RELEASE TAB PO SCH (08:35)
[2017-01-26] MEDS: ASPIRIN 325 MG TAB PO SCH (08:36)
[2017-01-26] MEDS: BUDESONIDE-FORMOTEROL 160/4.5 MCG INHALER INH SCH ×2 (08:36→21:00)
--- NOTE | 2017-01-26 09:16 | HHI.PR ---
Subjective Remarks Follow up chest pain. Patient states that he feels better today. Breathing is close to baseline. Chest pain improved. Objective Vitals Vital Signs Date Time Temp Pulse Resp B/P (MAP) Pulse Ox O2 Delivery O2 Flow Rate FiO2 01/26/17 09:00 79 01/26/17 08:59 99 Nasal Cannula 2.00 01/26/17 08:00 71 01/26/17 07:00 73 01/26/17 07:00 97.5 92 20 114/79 (91) 95 01/26/17 07:00 95 Nasal Cannula 2.00 01/26/17 06:00 75 01/26/17 05:00 76 01/26/17 04:00 Nasal Cannula 2.00 01/26/17 04:00 72 01/26/17 04:00 98.4 72 18 91/53 (66) 97 01/26/17 03:00 74 01/26/17 02:00 75 01/26/17 01:00 81 01/26/17 00:00 98.1 72 18 84/54 (64) 96 01/26/17 00:00 Nasal Cannula 2.00 01/26/17 00:00 72 01/25/17 23:00 80 01/25/17 22:00 79 01/25/17 21:22 94 Nasal Cannula 2.00 01/25/17 21:00 84 01/25/17 20:00 83 01/25/17 20:00 98.0 83 18 111/63 (79) 98 01/25/17 18:31 84 01/25/17 18:31 97.8 84 20 95/60 (72) 98 01/25/17 18:28 01/25/17 17:33 92 104/51 (68) 01/25/17 16:14 98 Nasal Cannula 2.00 01/25/17 14:49 80 89/52 (64) 01/25/17 14:22 88 88/52 (64) 01/25/17 13:39 96 78/45 (56) 01/25/17 13:31 96 76/51 (59) 01/25/17 13:22 96 Nasal Cannula 2.00 01/25/17 13:20 106 89/54 (66) 01/25/17 13:17 106 27 88/52 (64) 98 Nasal Cannula 01/25/17 13:14 108 28 76/49 (58) 97 Nasal Cannula 01/25/17 12:49 26 98 Nasal Cannula 2.00 01/25/17 12:48 112 30 125/58 (80) 98 Nasal Cannula 2.00 01/25/17 12:45 97.6 124 28 89/55 (66) 96 Room Air 01/25/17 12:45 98.0 125 26 125/58 (80) 98 I/O 01/25/17 01/25/17 01/25/17 01/26/17 01/26/17 01/26/17 07:00 15:00 23:00 07:00 15:00 23:00 Intake Total 2000 ml 1060 ml Output Total 900 ml Balance 2000 ml 160 ml Intake Oral 480 ml IV Total 2000 ml 580 ml Output Urine Total 900 ml # Bowel Movements 0 Result Diagram: 01/25/17 1355 01/25/17 1300 Imaging Last Impressions Aorta CTA 01/25/17 1322 Signed Impressions: Service Date/Time: Wednesday, January 25, 2017 13:58 - CONCLUSION: 1. Atherosclerotic changes in the aorta with no evidence of dissection or aneurysm. 2. Hyperinflation and underlying emphysema. Cisco Beyer MD Chest X-Ray 01/25/17 1249 Signed Impressions: Service Date/Time: Wednesday, January 25, 2017 13:22 - CONCLUSION: Stable chest x-ray. No acute cardiopulmonary abnormality is identified. Hira Osorio MD Head CT 01/25/17 0000 Signed Impressions: Service Date/Time: Wednesday, January 25, 2017 13:52 - CONCLUSION: Stable noncontrast head CT. No acute intracranial abnormality is identified. Hira Osorio MD Objective Remarks General: Elderly male in no acute distress. Receiving nebulizer treatment. Heart: Regular rate and rhythm. No murmur. Lungs: Scattered wheeze. Breathing is nonlabored. Abdomen: Soft, nontender, nondistended. Extremities: No lower extremity edema. Psych: Alert and oriented. Procedures None Urinary Catheter: No Vascular Central Line Catheter: No A/P Problem List: (1) Atypical chest pain ICD Code: R07.89 - Other chest pain (2) COPD (chronic obstructive pulmonary disease) ICD Code: J44.9 - COPD (chronic obstructive pulmonary disease) Status: Chronic (3) HTN (hypertension) ICD Code: I10 - HTN (hypertension) Status: Chronic Assessment and Plan 1. Atypical chest pain: Serial cardiac enzymes are negative. Appreciate cardiology recommendations. Will need nuclear stress test. On heparin drip. Monitor on telemetry. Chest x-ray is negative. CTA of the aorta shows no evidence of dissection/aneurysm. Continue aspirin, Plavix. 2. COPD: Patient uses 4 L of oxygen continuously at home. Continue DuoNeb scheduled, albuterol as needed. Continue Symbicort, prednisone. 3. GI prophylaxis: Protonix. 4. DVT prophylaxis: Heparin. 5. Hypertension: Blood pressure has been low. Carvedilol and enalapril on hold. Juan Rogers MD Jan 26, 2017 09:16
[2017-01-26] MEDS: SODIUM CHLOR 0.9% 1000 ML INJ 1,000 ML IV SCH (11:44)
--- NOTE | 2017-01-26 13:48 | EKG ---
Date Performed: 01/25/2017 Time Performed: 13:39:57 PTAGE: 76 years EKG: Sinus rhythm POSSIBLE RIGHT VENTRICULAR CONDUCTION DELAY LEFT ANTERIOR FASCICULAR BLOCK INFERIOR MYOCARDIAL INFAR CTION ABNORMAL ECG PREVIOUS TRACING 01/25/[address]-T wave change Since previous tracing, heart rate is sl ower and the ST depresssion anterolaterally is less prominent. DOCTOR: Mark Hedrick Interpretating Date/Time 01/26/2017 13:47:43
--- NOTE | 2017-01-26 13:48 | EKG ---
Date Performed: 01/25/2017 Time Performed: 12:58:21 PTAGE: 76 years EKG: SINUS TACHYCARDIA POSSIBLE RIGHT VENTRICULAR CONDUCTION DELAY LEFT ANTERIOR FASCICULAR BLOC K PROBABLE INFERIOR MYOCARDIAL INFARCTION ABNORMAL ECG PREVIOUS TRACING : 03/01/2014 15.39 Diffuse nonspecific T-wave change. Since previous tracing, ST depression is slightly more prominent anterolateraly, otherwise no significant change. DOCTOR: Mark Hedrick Interpretating Date/Time 01/27/2017 07:41:57
[2017-01-26] MEDS ORDERED: REGADENOSON INJ 0.4 MG/5 ML SYR ONE (13:49)
--- NOTE | 2017-01-26 13:49 | EKG ---
Date Performed: 01/25/2017 Time Performed: 18:26:56 PTAGE: 76 years EKG: Sinus rhythm . Left axis deviation RBBB with left anterior fascicular block Possible inferior infarct - age undete rmined Lateral ST-T changes are nonspecific Abnormal ECG PREVIOUS TRACING : 01/25/2017 13.39 Since previous tracing, no significant change. DOCTOR: Mark Hedrick Interpretating Date/Time 01/26/2017 13:47:56
--- NOTE | 2017-01-26 16:51 | RADRPT ---
EXAM DATE/TIME: 01/26/2017 13:12 [place] COMPARISON: No previous studies available for comparison. INDICATIONS : Chest and neck pain. Myocardial infarction. DOSE: 27.0 mCi Tc99m Myoview at stress. 8.4 mCi Tc99m Myoview at rest. 0.4 mg Lexiscan STRESS SYMPTOMS: Dyspnea and chest pain. EJECTION FRACTION: 45% MEDICAL HISTORY : Stroke. Cardiovascular disease Chronic obstructive pulmonary disease. HTN. SURGICAL HISTORY : Total knee replacement, left. Angioplasty. Appendectomy. ENCOUNTER: Initial ACUITY: 1 day PAIN SCALE: 0/10 LOCATION: Bilateral chest TECHNIQUE: The patient underwent pharmacologic stress with infusion of prescribed dose. Continuous ECG tracing was monitored during stress. Gated SPECT imaging was performed after stress and conventional SPECT i maging was performed at rest. The examination was performed on a SPECT/CT scanner, both attenuation and non-corrected datasets were reviewed. FINDINGS: DISTRIBUTION: The maximum perfused segment at stress is in the septal wall. There is a summed stress score of 15. PERFUSION STUDY: There is a moderate size partially reversible inferior wall defect. GATED STUDY: There is a decreased calculated ejection fraction and an apparent dyskinesis involving portions of th e inferior wall. CONCLUSION: 1. Partially reversible moderate sized inferior wall defect which could indicate ischemia. 2. Decreased calculated ejection fraction of 45% with areas of dyskinesis involving the inferior wall . RISK CATEGORY: Intermediate (1-3% Annual Mortality Rate) Cisco Beyer MD on January 26, 2017 at 16:44 Board Certified Radiologist. This report was verified electronically.
[2017-01-26] MEDS: traZODone HCL 100 MG TAB PO SCH (21:10)
[2017-01-26] MEDS: ACETAMINOPHEN/HYDROcodone 325 MG/7.5 MG TAB PO PRN (21:10)
[2017-01-27] VITALS (13 sets, daily range): BP systolic 112–163; BP diastolic 72–84; PULSE 73–89; RESP 16–18; TEMP 97.8–98.4; O2SAT 95–97
[2017-01-27 06:49] LABS: APTT (PATIENT) 37.8 SEC (24.3-30.1)
[2017-01-27] MEDS: RESP: ALBUTEROL 2.5 MG/IPRATROPIUM 0.5 MG NEB (SCH) NEB ×2 (07:19→11:08)
[2017-01-27] MEDS: SODIUM CHLOR 0.9% 1000 ML INJ 1,000 ML IV SCH (07:44)
--- NOTE | 2017-01-27 08:42 | PD.CARD.PN ---
Subjective Subjective Remarks No further chest pain, doing well. Objective Medications Administered Medications Medications (Trade) Dose Ordered Sig/Carlton Route PRN Reason Start Time Stop Time Status Last Admin Dose Admin Heparin Sodium/ Dextrose 250 ml @ 8.4 mls/hr TITRATE PRN IV Coagulation management 01/25/17 14:00 01/25/17 14:50 Sodium Chloride 1,000 ml @ 50 mls/hr Q20H IV 01/25/17 15:44 01/26/17 11:44 Aspirin (Aspirin) 325 mg DAILY PO 01/26/17 09:00 01/26/17 08:36 Acetaminophen/ Hydrocodone Bitart ([place] 7.5-325 Mg) 1 tab Q4H PRN PO PAIN SCALE 1 TO 5 01/25/17 15:45 01/26/17 21:10 Pantoprazole Sodium (Protonix) 40 mg DAILY PO 01/25/17 15:45 01/26/17 08:35 Albuterol/ Ipratropium (Duoneb Neb) 1 ampule QID NEB NEB 01/25/17 16:00 01/27/17 07:19 Budesonide/ Formoterol Fumarate (Symbicort 160-4.5 Inh) 2 puff Q12HR INH 01/25/17 21:00 01/26/17 21:00 Clopidogrel Bisulfate (Plavix) 75 mg DAILY PO 01/26/17 09:00 01/26/17 08:35 Prednisone (Deltasone) 5 mg DAILY PO 01/26/17 09:00 01/26/17 08:35 Ranolazine (Ranexa) 500 mg BID PO 01/25/17 21:00 01/26/17 21:10 Trazodone HCl (Desyrel) 100 mg HS PO 01/25/17 21:00 01/26/17 21:10 Vital Signs / I&O Vital Signs Date Time Temp Pulse Resp B/P (MAP) Pulse Ox O2 Delivery O2 Flow Rate FiO2 01/27/17 06:00 79 01/27/17 05:00 77 01/27/17 04:00 98.1 81 18 126/75 (92) 96 01/27/17 04:00 81 01/27/17 04:00 Nasal Cannula 2.00 01/27/17 03:00 79 01/27/17 02:00 80 01/27/17 01:00 75 01/27/17 00:00 Nasal Cannula 2.00 01/27/17 00:00 73 01/27/17 00:00 98.4 73 18 141/72 (95) 95 01/26/17 23:00 79 01/26/17 22:00 89 01/26/17 21:00 96 01/26/17 20:23 96 Nasal Cannula 2.00 01/26/17 20:00 95 Nasal Cannula 2.00 01/26/17 20:00 98.2 92 20 139/79 (99) 96 01/26/17 20:00 92 01/26/17 18:00 83 01/26/17 17:00 90 01/26/17 16:00 94 01/26/17 15:00 98.5 86 20 132/73 (92) 99 01/26/17 15:00 87 01/26/17 12:00 76 01/26/17 11:00 97.5 81 20 119/51 (73) 98 01/26/17 11:00 73 01/26/17 10:00 73 01/26/17 09:00 79 01/26/17 08:59 99 Nasal Cannula 2.00 I/O 01/26/17 01/26/17 01/26/17 01/27/17 01/27/17 01/27/17 07:00 15:00 23:00 07:00 15:00 23:00 Intake Total 1060 ml 1313 ml 1060 ml Output Total 900 ml 650 ml 850 ml 300 ml Balance 160 ml 663 ml 210 ml -300 ml Intake Oral 480 ml 600 ml 480 ml IV Total 580 ml 713 ml 580 ml Output Urine Total 900 ml 650 ml 850 ml 300 ml # Bowel Movements 0 1 0 Physical Exam GENERAL: This is a well-nourished, well-developed patient, in no apparent distress. CARDIOVASCULAR: Regular rate and rhythm without murmurs, gallops, or rubs. RESPIRATORY: Clear to auscultation. Breath sounds equal bilaterally. No wheezes , rales, or rhonchi. GASTROINTESTINAL: Abdomen soft, non-tender, nondistended. Normal active bowel sounds MUSCULOSKELETAL: Extremities without clubbing, cyanosis, or edema. NEURO: Alert & Oriented x4 to person, place, time, situation. Moves all ext x4 Laboratory Laboratory Tests Test 01/27/17 05:30 Activated Partial Thromboplast Time 37.8 SEC Imaging Last Impressions Myocardial Perfusion Scan Nuc Med 01/26/17 0000 Signed Impressions: Service Date/Time: Thursday, January 26, 2017 13:12 - CONCLUSION: 1. Partially reversible moderate sized inferior wall defect which could indicate ischemia. 2. Decreased calculated ejection fraction of 45%% with areas of dyskinesis involving the inferior wall. RISK CATEGORY: Intermediate (1-3%% Annual Mortality Rate) Cisco Beyer MD Aorta CTA 01/25/17 1322 Signed Impressions: Service Date/Time: Wednesday, January 25, 2017 13:58 - CONCLUSION: 1. Atherosclerotic changes in the aorta with no evidence of dissection or aneurysm. 2. Hyperinflation and underlying emphysema. Cisco Beyer MD Chest X-Ray 01/25/17 1249 Signed Impressions: Service Date/Time: Wednesday, January 25, 2017 13:22 - CONCLUSION: Stable chest x-ray. No acute cardiopulmonary abnormality is identified. Hira Osorio MD Head CT 01/25/17 0000 Signed Impressions: Service Date/Time: Wednesday, January 25, 2017 13:52 - CONCLUSION: Stable noncontrast head CT. No acute intracranial abnormality is identified. Hira Osorio MD Assessment and Plan Problem List: (1) CAD (coronary artery disease) ICD Codes: I25.10 - Atherosclerotic heart disease of chilkoot coronary artery without angina pectoris Plan: Nuclear stress test not particularly helpful "partial reversibility, possible ischemia" noted, symptoms were very atypical and resolved. Given that he ruled out for LA and is now asymptomatic, will try to manage medically, increase Ranexa to 1000mg bid (2) Atypical chest pain ICD Codes: R07.89 - Other chest pain Status: Resolved Assessment and Plan Discussed at length with the patient and I did offer a cardiac cath but the patient agrees to medical mgt since his symptoms resolved (he feels now it was due to anxiety); he understands to return w/ any further chest pain; will see him back in my office in 1-2 weeks. Nicolas Yin MD Jan 27, 2017 08:42
[2017-01-27] MEDS ORDERED: RANOLAZINE 500 MG EXTENDED RELEASE TAB PO SCH (09:00)
[2017-01-27] MEDS: BUDESONIDE-FORMOTEROL 160/4.5 MCG INHALER INH SCH (09:00)
--- NOTE | 2017-01-27 09:38 | HHI.PR ---
Subjective Remarks Follow up chest pain. Patient states that he feels much better today. Denies chest pain. Dyspnea is at baseline. Wants to go home. Objective Vitals Vital Signs Date Time Temp Pulse Resp B/P (MAP) Pulse Ox O2 Delivery O2 Flow Rate FiO2 01/27/17 08:00 76 01/27/17 07:00 78 01/27/17 07:00 Nasal Cannula 2.00 01/27/17 07:00 97.8 87 16 163/84 (110) 97 01/27/17 06:00 79 01/27/17 05:00 77 01/27/17 04:00 98.1 81 18 126/75 (92) 96 01/27/17 04:00 81 01/27/17 04:00 Nasal Cannula 2.00 01/27/17 03:00 79 01/27/17 02:00 80 01/27/17 01:00 75 01/27/17 00:00 Nasal Cannula 2.00 01/27/17 00:00 73 01/27/17 00:00 98.4 73 18 141/72 (95) 95 01/26/17 23:00 79 01/26/17 22:00 89 01/26/17 21:00 96 01/26/17 20:23 96 Nasal Cannula 2.00 01/26/17 20:00 95 Nasal Cannula 2.00 01/26/17 20:00 98.2 92 20 139/79 (99) 96 01/26/17 20:00 92 01/26/17 18:00 83 01/26/17 17:00 90 01/26/17 16:00 94 01/26/17 15:00 98.5 86 20 132/73 (92) 99 01/26/17 15:00 87 01/26/17 12:00 76 01/26/17 11:00 97.5 81 20 119/51 (73) 98 01/26/17 11:00 73 01/26/17 10:00 73 I/O 01/26/17 01/26/17 01/26/17 01/27/17 01/27/17 01/27/17 07:00 15:00 23:00 07:00 15:00 23:00 Intake Total 1060 ml 1313 ml 1060 ml Output Total 900 ml 650 ml 850 ml 300 ml Balance 160 ml 663 ml 210 ml -300 ml Intake Oral 480 ml 600 ml 480 ml IV Total 580 ml 713 ml 580 ml Output Urine Total 900 ml 650 ml 850 ml 300 ml # Bowel Movements 0 1 0 Result Diagram: 01/25/17 1355 01/25/17 1300 Imaging Last Impressions Myocardial Perfusion Scan Nuc Med 01/26/17 0000 Signed Impressions: Service Date/Time: Thursday, January 26, 2017 13:12 - CONCLUSION: 1. Partially reversible moderate sized inferior wall defect which could indicate ischemia. 2. Decreased calculated ejection fraction of 45%% with areas of dyskinesis involving the inferior wall. RISK CATEGORY: Intermediate (1-3%% Annual Mortality Rate) Cisco Beyer MD Aorta CTA 01/25/17 1322 Signed Impressions: Service Date/Time: Wednesday, January 25, 2017 13:58 - CONCLUSION: 1. Atherosclerotic changes in the aorta with no evidence of dissection or aneurysm. 2. Hyperinflation and underlying emphysema. Cisco Beyer MD Chest X-Ray 01/25/17 1249 Signed Impressions: Service Date/Time: Wednesday, January 25, 2017 13:22 - CONCLUSION: Stable chest x-ray. No acute cardiopulmonary abnormality is identified. Hira Osorio MD Head CT 01/25/17 0000 Signed Impressions: Service Date/Time: Wednesday, January 25, 2017 13:52 - CONCLUSION: Stable noncontrast head CT. No acute intracranial abnormality is identified. Hira Osorio MD Objective Remarks General: Elderly male in no acute distress. Heart: Regular rate and rhythm. No murmur. Lungs: Scattered wheeze. Breathing is nonlabored. Abdomen: Soft, nontender, nondistended. Extremities: No lower extremity edema. Psych: Alert and oriented. Procedures None Urinary Catheter: No Vascular Central Line Catheter: No A/P Problem List: (1) Atypical chest pain ICD Code: R07.89 - Other chest pain Status: Resolved (2) COPD (chronic obstructive pulmonary disease) ICD Code: J44.9 - COPD (chronic obstructive pulmonary disease) Status: Chronic (3) HTN (hypertension) ICD Code: I10 - HTN (hypertension) Status: Chronic Assessment and Plan 1. Atypical chest pain: Resolved. Serial cardiac enzymes are negative. Appreciate cardiology recommendations. S/P nuclear stress test, which was reviewed by cardiology. Chest x-ray is negative. CTA of the aorta shows no evidence of dissection/aneurysm. Continue aspirin, Plavix. 2. COPD: Patient uses 4 L of oxygen continuously at home. Continue DuoNeb scheduled, albuterol as needed. Continue Symbicort, prednisone. 3. GI prophylaxis: Protonix. 4. DVT prophylaxis: Heparin. 5. Hypertension: Blood pressure has been low, but now elevated. Restart carvedilol, enalapril. Cleared for discharge by cardiology. Discussed with Dr. Yin. Discharge Planning Discharge home in stable condition. Heart healthy diet. Activity as tolerated. Follow up with PCP, cardiology. Juan Rogers MD Jan 27, 2017 09:38
[2017-01-27] MEDS ORDERED: RANO500 PO (09:40)
[2017-01-27] MEDS ORDERED: ASPI81TA11 PO (09:40)
--- NOTE | 2017-01-27 09:41 | HHI.DCPOC ---
Discharge Care Plan Diagnosis: (1) Atypical chest pain (2) CAD (coronary artery disease) (3) HTN (hypertension) (4) COPD (chronic obstructive pulmonary disease) (5) Hypotension Goals to Promote Your Health * To prevent worsening of your condition and complications * To maintain your health at the optimal level Directions to Meet Your Goals Take your medications as prescribed Follow your dietary instruction Follow activity as directed Keep your appointments as scheduled Take your immunizations and boosters as scheduled If your symptoms worsen call your PCP, if no PCP go to Urgent Care Center or Emergency Room Smoking is Dangerous to Your Health. Avoid second hand smoke Call the 24-hour hour crisis hotline for domestic abuse at Juan Rogers MD Jan 27, 2017 09:41
[2017-01-27] MEDS: predniSONE 5 MG TAB PO SCH (09:45)
[2017-01-27] MEDS: ASPIRIN 325 MG TAB PO SCH (09:45)
[2017-01-27] MEDS: PANTOPRAZOLE SOD 40 MG DELAYED RELEASE TAB PO SCH (09:45)
[2017-01-27] MEDS: CLOPIDOGREL 75 MG TAB PO SCH (09:46)
== END 2017-01-27 15:05 | disposition home or self-care (01) | DRG 313 ==
LOC: NEPC 12:40 → NEDA 15:16 → HCIS 18:12
PROVIDERS: ADMIT Family Medicine; ATTEND Family Medicine
DX: R07.89 Other chest pain (principal); I25.2 Old myocardial infarction; I95.9 Hypotension, unspecified; Z99.81 Dependence on supplemental oxygen; J44.9 Chronic obstructive pulmonary disease, unspecified; I27.2 Other secondary pulmonary hypertension; I25.10 Atherosclerotic heart disease of native coronary artery without angina pectoris; I10 Essential (primary) hypertension; H91.93 Unspecified hearing loss, bilateral; K21.9 Gastro-esophageal reflux disease without esophagitis; I70.0 Atherosclerosis of aorta; R00.0 Tachycardia, unspecified; F41.9 Anxiety disorder, unspecified; Z86.73 Personal history of transient ischemic attack (TIA), and cerebral infarction without residual deficits; Z87.891 Personal history of nicotine dependence; Z96.652 Presence of left artificial knee joint; Z95.5 Presence of coronary angioplasty implant and graft
CPT/HCPCS: 70450; 71010; 71275; 74174; 78452; 80048; 80061; 82550; 82552; 83690; 83735; 84484; 85025; 85027; 85610; 85730; 86850; 86900; 86901; 93005; 93017; 94640; 94664; 96361; 96365; 96375; A9502; J1644; J2270; J2785; J7030; J7512; Q9967

== ENCOUNTER 2017-06-06 22:35 | Emergency (ER) | payer MEDICARE, OTHER ==
[~2017-06-06] VITALS: Ht 177.8 cm; Wt 65.0 kg
[~2017-06-06 22:35] MED LIST changes: -ALFU10TA2 PO; -ASPI325T PO; +ASPI81TA23 PO; -ATOR40TA PO; -CARV6.25 PO; +CARV6.252 PO; -CLOP75TA PO; -FERR324T4 PO; -GABA300C3 PO; -LORTA5 PO; -PANT20 PO; +PLAV75TA29 PO; -ROFL1TAB2 OR; -SERT-132 OR; -TRAZ100 PO; +TRAZ100T10 PO; +VENTAER INH
[2017-06-06 22:46] VITALS: BP 158/68; PULSE 86; RESP 18; TEMP 98.2; O2SAT 100
[2017-06-06] MEDS ORDERED: KETOROLAC TROMETHAMINE 60 MG/2 ML (IM) VIAL IM ONE (23:45)
--- NOTE | 2017-06-06 23:48 | PD ---
HPI Chief Complaint: Pain: Acute or Chronic Time Seen by Provider: 22:39 Travel History International Travel<30 days: No Contact w/Intl Traveler<30days: No Traveled to known affect area: No History of Present Illness HPI Patient is a 77-year-old male who was recently admitted for hip fracture he was in rehabilitation up until 2 weeks ago. He said he was inpatient and rehabilitation for 6 weeks now he is at home he says he was eating some food and then started to cough tonight and now has severe right-sided shoulder and pectoral area pain he is not to Is not short of breath but he says the pain is severe localized to the right upper outer quadrant of his pectoral R muscle PFSH Past Medical History Hx Anticoagulant Therapy: Yes (PLAVIX) Asthma: Yes Blood Disorders: No Anxiety: Yes Depression: Yes Heart Rhythm Problems: No Cancer: No Cardiac Catheterization: Yes Cardiovascular Problems: Yes (3 STENTS) High Cholesterol: Yes Chest Pain: Yes Congestive Heart Failure: No COPD: Yes Cerebrovascular Accident: Yes (x3) Coronary Artery Disease: Yes Diabetes: No Diminished Hearing: Yes (DIMINISHED HEARING LOW) Endocrine: No Gastrointestinal Disorders: Yes GERD: Yes Genitourinary: No Hepatitis: No Hiatal Hernia: No Hypertension: Yes Immune Disorder: No Medical other: Yes (NECK) Musculoskeletal: Yes (RIGHT HIP FX, NO SURGERY PER PATIENT) Neurologic: Yes (STROKE) Psychiatric: Yes Reproductive: No Respiratory: Yes (COPD) Immunizations Current: Yes Myocardial Infarction: Yes Thyroid Disease: No Ulcer: Yes Past Surgical History Abdominal Surgery: Yes (ulcers, APPY) AICD: No Appendectomy: Yes Body Medical Devices: STENTS X3 Cardiac Surgery: Yes (cardiac cath, BALLOON PLACEMENT, STENTS ) Coronary Stent: Yes Ear Surgery: No Endocrine Surgery: No Eye Surgery: No Genitourinary Surgery: No Gynecologic Surgery: No Joint Replacement: No Oral Surgery: No Pacemaker: No Thoracic Surgery: No Tonsillectomy: Yes Other Surgery: Yes (appendix) Social History Alcohol Use: No Tobacco Use: No (quit 2008) Substance Use: No Allergies-Medications (Allergen,Severity, Reaction): Coded Allergies: No Known Allergies (Verified Adverse Reaction, Unknown, 06/07/17) Reported Meds & Prescriptions Reported Meds & Active Scripts Active Aspirin EC (Aspirin) 81 Mg Tabdr 81 Mg PO DAILY Ranexa ER 12 HR (Ranolazine) 500 Mg Tab 1,000 Mg PO BID Reported Ventolin Hfa 18 GM Inh (Albuterol Sulfate) 90 Mcg/Act Aer 2 Puff INH Q6H PRN Trazodone (Trazodone HCl) 100 Mg Tablet 100 Mg PO HS Prednisone 5 Mg Tab 5 Mg PO DAILY Nitrostat SL (Nitroglycerin) 0.4 Mg Subl 0.4 Mg SL DIRECTED PRN 1 tablet under the tongue as needed for chest pain. Repeat every 5 minutes for a total of 3 DOSES or call 911 if NO relief. Enalapril (Enalapril Maleate) 5 Mg Tab 5 Mg PO DAILY Plavix (Clopidogrel Bisulfate) 75 Mg Tab 75 Mg PO DAILY Carvedilol 6.25 Mg Tab 6.25 Mg PO BID Symbicort Inh (Budesonide/Formoterol Fumarate) 160-4.5 Mcg/Act Aero 2 Puff INH Q12HR Review of Systems Except as stated in HPI: all other systems reviewed are Neg General / Constitutional: Positive: Other Respiratory: Positive: Cough Musculoskeletal: Positive: Myalgias (chest pain upper right) Physical Exam Narrative GENERAL: Nontoxic awake alert good historian SKIN: Warm and dry. HEAD: Atraumatic. Normocephalic. EYES: Pupils equal and round. No scleral icterus. No injection or drainage. ENT: No nasal bleeding or discharge. Mucous membranes pink and moist. NECK: Trachea midline. No JVD. His upper scapula area he has some point tenderness as well right-sided CARDIOVASCULAR: Regular rate and rhythm. RESPIRATORY: No accessory muscle use. Clear to auscultation. Breath sounds equal bilaterally. Severe chest tenderness in the upper outer right pectoral muscle but there is no hematoma no sign of bruise he has a severe pain reaction when I pinpoint press around the second intercostal on the lateral aspect of the pectoral muscle right-sided GASTROINTESTINAL: Abdomen soft, non-tender, nondistended. Hepatic and splenic margins not palpable. MUSCULOSKELETAL: Extremities without clubbing, cyanosis, or edema. No obvious deformities. NEUROLOGICAL: Awake and alert. No obvious cranial nerve deficits. Motor grossly within normal limits. Five out of 5 muscle strength in the arms and legs. Normal speech. PSYCHIATRIC: Appropriate mood and affect; insight and judgment normal. Data Data Last Documented VS Orders Orders Complete Blood Count With Diff (06/06/17 23:34) Comprehensive Metabolic Panel (06/06/17 23:34) Ckmb (Isoenzyme) Profile (06/06/17 23:34) Troponin I (06/06/17 23:34) Lipase (06/06/17 23:34) Chest, Pa & Lat (06/06/17 23:34) Ribs, Uni (W/O Exp Cxr) (06/06/17 ) Ketorolac Inj (Toradol Inj) (06/06/17 23:45) Oxycodone-Acetamin 5-325 Mg (Percocet (06/07/17 01:00) Sodium Chlor 0.9% 1000 Ml Inj (Ns 1000 M (06/07/17 01:00) Troponin I (06/07/17 03:41) Ct Thorax/ Chest Wo Iv Contras (06/07/17 ) Ed Discharge Order (06/07/17 05:55) Labs Laboratory Tests Test 06/07/17 00:35 06/07/17 03:45 White Blood Count 7.3 TH/MM3 Red Blood Count 3.77 MIL/MM3 Hemoglobin 11.5 GM/DL Hematocrit 33.8 % Mean Corpuscular Volume 89.6 FL Mean Corpuscular Hemoglobin 30.6 PG Mean Corpuscular Hemoglobin Concent 34.1 % Red Cell Distribution Width 14.3 % Platelet Count 142 TH/MM3 Mean Platelet Volume 7.5 FL Neutrophils (%) (Auto) 72.5 % Lymphocytes (%) (Auto) 15.4 % Monocytes (%) (Auto) 9.0 % Eosinophils (%) (Auto) 2.3 % Basophils (%) (Auto) 0.8 % Neutrophils # (Auto) 5.3 TH/MM3 Lymphocytes # (Auto) 1.1 TH/MM3 Monocytes # (Auto) 0.7 TH/MM3 Eosinophils # (Auto) 0.2 TH/MM3 Basophils # (Auto) 0.1 TH/MM3 CBC Comment DIFF FINAL Differential Comment Blood Urea Nitrogen 15 MG/DL Creatinine 0.99 MG/DL Random Glucose 115 MG/DL Total Protein 6.3 GM/DL Albumin 3.0 GM/DL Calcium Level 8.3 MG/DL Alkaline Phosphatase 126 U/L Aspartate Amino Transf (AST/SGOT) 25 U/L Alanine Aminotransferase (ALT/SGPT) 17 U/L Total Bilirubin 0.4 MG/DL Sodium Level 146 MEQ/L Potassium Level 3.9 MEQ/L Chloride Level 109 MEQ/L Carbon Dioxide Level 30.9 MEQ/L Anion Gap 6 MEQ/L Estimat Glomerular Filtration Rate 73 ML/MIN Total Creatine Kinase 91 U/L Troponin I 0.03 NG/ML 0.03 NG/ML Lipase 271 U/L MDM Medical Decision Making Medical Screen Exam Complete: Yes Emergency Medical Condition: Yes Differential Diagnosis rib frx vs costochondritis, PNA muscle strain , Narrative Course ekg and trop are negative rib films are negative and CXR no new fracture , CT shows minimal left pleural effusion unrelated to right shoulder reproducible pain , D/C home Diagnosis Primary Impression: Costochondritis Disposition: 01 DISCHARGE HOME Condition: Good Dex Lorenzana MD Jun 06, 2017 23:48
--- NOTE | 2017-06-07 00:32 | RADRPT ---
EXAM DATE/TIME: 06/06/2017 23:54 [facility] COMPARISON: CHEST SINGLE AP, January 25, 2017, 13:22. INDICATIONS : Chest pain. MEDICAL HISTORY : Chronic obstructive pulmonary disease. Emphysema. Right hip fractures.Stroke. Cardiovascular dis ease. SURGICAL HISTORY : Stents.Total knee replacement, left. Angioplasty. Appendectomy. ENCOUNTER: Initial ACUITY: 1 day PAIN SCORE: 8/10 LOCATION: Right chest anterior FINDINGS: Cardiomegaly and aortic calcification. Hyperinflation and mild diffuse interstitial prominence again seen. There is diffuse atherosclerotic calcification of the aorta. There is increased density in the left lung base medially which may correspond to a focal opacity seen posteriorly overlying the spine. A pleural-based mass versus consolidation cannot this appearance. CONCLUSION: Cannot exclude a left lower lobe pleural-based mass versus consolidation. CT chest recommended. Jerson Lam MD on June 07, 2017 at 0:28 Board Certified Radiologist. This report was verified electronically.
--- NOTE | 2017-06-07 00:33 | RADRPT ---
EXAM DATE/TIME: 06/07/2017 00:01 [place] Corrected on: June 07, 2017; [facility] COMPARISON: CHEST PA & LAT, June 06, 2017, 23:54. INDICATIONS : Right side chest pain. MEDICAL HISTORY : Chronic obstructive pulmonary disease. Emphysema. Right hip fractures. Total knee replacement, l eft. Angioplasty. Appendectomy. SURGICAL HISTORY : Stents.Total knee replacement, left. Angioplasty. Appendectomy. ENCOUNTER: Initial ACUITY: 1 day PAIN SCORE: 8/10 LOCATION: Right chest FINDINGS: Atherosclerotic calcification of the aorta. Cardiomegaly. Hyperinflation. Increased density in the le ft lower lobe. No obvious fractures. CONCLUSION: No obvious fractures. Left basilar opacity. CT chest recommended. Jerson Lam MD on June 07, 2017 at 0:30 Board Certified Radiologist. This report was verified electronically. Jerson Lam MD on June 07, 2017 at 4:39 Board Certified Radiologist. This report was verified electronically.
[2017-06-07] MEDS ORDERED: oxyCODONE/ACETAMINOPHEN 5 MG/325 MG TAB PO ONE (01:00)
[2017-06-07] MEDS ORDERED: SODIUM CHLOR 0.9% 1000 ML INJ 1,000 ML IV ONE (01:00)
[2017-06-07 01:07] LABS: ALT (GPT) 17 U/L (12-78); AST (GOT) 25 U/L (15-37); BICARBONATE 30.9 MEQ/L (21.0-32.0); BLOOD UREA NITROGEN 15 MG/DL (7-18); CALCIUM 8.3 MG/DL (8.5-10.1); CHLORIDE 109 MEQ/L (98-107); CREATININE 0.99 MG/DL (0.60-1.30); GLOMERULAR FILTRATION RATE 73 ML/MIN (>89); GLUCOSE,RANDOM 115 MG/DL (74-106); SODIUM (NA) 146 MEQ/L (136-145)
[2017-06-07 01:11] LABS: ALKALINE PHOSPHATASE 126 U/L (45-117); TOTAL BILIRUBIN ADULT 0.4 MG/DL (0.2-1.0); TOTAL PROTEIN 6.3 GM/DL (6.4-8.2); TROPONIN I 0.03 NG/ML (0.02-0.05)
[2017-06-07 01:23] VITALS: BP 145/67; PULSE 84; RESP 18; O2SAT 98
[2017-06-07 01:25] LABS: AUTOMATED NEUTROPHIL # 5.3 TH/MM3 (1.8-7.7); BASOPHIL # 0.1 TH/MM3 (0-0.2); BASOPHIL % 0.8 % (0.0-2.0); EOSINOPHIL # 0.2 TH/MM3 (0-0.4); EOSINOPHIL % 2.3 % (0.0-4.0); HEMATOCRIT 33.8 % (39.0-51.0); HEMOGLOBIN 11.5 GM/DL (13.0-17.0); LYMPH % 15.4 % (9.0-44.0); LYMPHOCYTE # 1.1 TH/MM3 (1.0-4.8); MEAN CELL VOLUME 89.6 FL (80.0-100.0); MEAN CORPUSCULAR HEMOGLOBIN 30.6 PG (27.0-34.0); MEAN CORPUSCULAR HGB CONC 34.1 % (32.0-36.0); MEAN PLATELET VOLUME 7.5 FL (7.0-11.0); MONOCYTE # 0.7 TH/MM3 (0-0.9); NEUT % 72.5 % (16.0-70.0); PLATELET COUNT 142 TH/MM3 (150-450); RED BLOOD COUNT 3.77 MIL/MM3 (4.50-5.90); RED CELL DISTRIBUTION WIDTH 14.3 % (11.6-17.2); WHITE BLOOD COUNT 7.3 TH/MM3 (4.0-11.0)
[2017-06-07 04:30] VITALS: BP 161/67; PULSE 88; RESP 18; O2SAT 97
--- NOTE | 2017-06-07 04:40 | RADRPT ---
EXAM DATE/TIME: 06/07/2017 04:09 [facility] COMPARISON: CTA THORACIC ABDOMINAL AORTA W 3D RECON, January 25, 2017, 13:58. RIBS RIGHT (W/O PA CXR), 2017, 0:01. INDICATIONS : Trauma; fall - possible rib fractures. RADIATION DOSE: 8.02 CTDIvol (mGy) MEDICAL HISTORY : Myocardial infarction. Chronic obstructive pulmonary disease. Cerebrovascular disease. HTN, Asthma, G ERD SURGICAL HISTORY : Abdominal aortic aneurysm repair. cardiac stents ENCOUNTER: Initial ACUITY: 1 day PAIN SCALE: 7/10 LOCATION: chest TECHNIQUE: Volumetric scanning of the chest was performed. Using automated exposure control and adjustment of t he mA and/or kV according to patient size, radiation dose was kept as low as reasonably achievable to obtain optimal diagnostic quality images. DICOM format image data is available electronically for r eview and comparison. Follow-up recommendations for detected pulmonary nodules are based at a minimum on nodule size and pa tient risk factors according to Fleischner Society Guidelines. FINDINGS: Emphysema and subpleural interstitial lung disease identified. Calcified granulomas are present. Diff use atherosclerotic calcification of the aorta and coronary arteries identified. There is a small lef t pleural effusion, and a masslike consolidative area in the left lower lobe with slight swelling of the adjacent bronchovascular markings identified. This is suggestive of rounded atelectasis. It measu res 6.3 x 3.5 cm in transverse and AP dimension. Subcentimeter calcified right hilar and partially ca lcified subcarinal node measuring 9.5 mm in short axis dimension. Review of bone windows demonstrate decreased bone mineralization and degenerative changes of the spine. There is an old left 10th brim stiffener ior rib fracture. CONCLUSION: Small left effusion and probable rounded atelectasis in the left lower lobe. Three-month followup CT chest recommended. Emphysema and interstitial lung disease. Remote left 10th rib fracture. Jerson Lam MD on June 07, 2017 at 4:34 Board Certified Radiologist. This report was verified electronically.
== END 2017-06-07 07:00 | disposition home or self-care (01) ==
LOC: NEPC 22:35
DX: M94.0 Chondrocostal junction syndrome [Tietze] (principal); I10 Essential (primary) hypertension; E78.00 Pure hypercholesterolemia, unspecified; J44.9 Chronic obstructive pulmonary disease, unspecified; I25.10 Atherosclerotic heart disease of native coronary artery without angina pectoris; I25.2 Old myocardial infarction; F32.9 Major depressive disorder, single episode, unspecified; Z86.73 Personal history of transient ischemic attack (TIA), and cerebral infarction without residual deficits; Z95.5 Presence of coronary angioplasty implant and graft; Z79.01 Long term (current) use of anticoagulants; Z79.899 Other long term (current) drug therapy
CPT/HCPCS: 71046; 71100; 71250; 80053; 82550; 83690; 84484; 85025; 96360; 96372; 99285; J1885; J7030